=== PATIENT | female | born 1990 | race Caucasian/White ===

== ENCOUNTER 2025-02-13 08:24 | Emergency (ER) | payer BC, MEDICAID ==
[~2025-02-13] VITALS: Ht 165.1 cm; Wt 67.6 kg
[~2025-02-13 08:24] MED LIST: ESOM40CA PO; FAMO-1 PO; IBUP-1984 PO; MACROBID PO; NO HOME MEDS; ONDA4TAB59 PO; ONDA4TAB6 PO; ONDA8TAB9 PO; POTA-206 PO; POTA10TA15 PO
[2025-02-13 08:26] VITALS: TEMP 98.2
[2025-02-13] MEDS ORDERED: CLOT30CR19 TOP (08:36)
[2025-02-13] MEDS ORDERED: AZIT250T83 PO (08:36)
--- NOTE | 2025-02-13 08:39 | Physician Documentation ---
History of Present Illness ~ Chief Complaint: Rash Stated Complaint: RASH Time Seen by MD: 08:31 Primary Medical Doctor: None HPI This is a very pleasant 34-year-old female who presented for evaluation of rash on her right upper extremity/forearm that has been present for the last three days. She states that there has been a raised circular rash. She developed a center rash earlier today. No obvious trigger provocation. [place] do have dogs, [place] It isn't painful. It isn't bleeding or discharge. Denies any other concerns. No concern for tobacco, alcohol or illicit substances use Medication Reconciliation Allergies: Coded Allergies: No Known Allergies (Unverified , 02/13/25) Scheduled Esomeprazole Mag Trihydrate* (Nexium*), 40 MG PO DAILY Famotidine* (Pepcid*), 20 MG PO DAILY Ibuprofen* (Motrin*), 1 TAB PO Q8H Nitrofurantoin/Nitrofuran Mac* (Macrobid*), 100 MG PO BID Ondansetron Hcl (Ondansetron Hcl), 4 MG PO Q8H PRN N/V Ondansetron Hcl (Zofran), 1 TAB PO Q8H Potassium Chloride (Potassium Chloride), 1 TAB PO BID Potassium Chloride (K-Dur), 1 TAB PO DAILY Scheduled PRN Ondansetron (Zofran Odt), 8 MG PO QID PRN Miscellaneous Medications Home Med List (No Home Medications), (Reported) Past Medical History Past Medical History: No Pertinent History Past Surgical History: no surgical history Alcohol Use: None Drug Use: none Lives with: Family Lives In: Home Occupation: student Review of Systems ROS 10 point review of systems was performed and unless noted above in HPI is nega tive for acute process/complaint. Physical Exam Vital Signs: Temperature: 98.2, Source: Temporal, Heart Rate: 67, Respiratory Rate: 16, BP: 154/97, Pulse Oximetry: 98, Weight: 67.600 Physical Exam Physical examination: GENERAL: Awake, alert, oriented, GCS 15, no apparent distress, non-toxic appearing, answers questions, follows commands appropriately. HEENT: Atraumatic, normocephalic, pupils equal, extraocular muscles intact Active gross movements, sclerae anicteric, mucus membranes moist, no stridor. NECK: Midline, no JVD CARDIOVASCULAR: Good skin perfusion without evidence of pallor, mottling. PULMONARY: Nonlabored, symmetric chest rise, no audible wheezing, no accessory muscle use, no respiratory distress, speaking in full sentences. GASTROINTESTINAL: Not distended. NEUROLOGIC: Lucid with normal mental status. Normal facial symmetry. Moves all extremities symmetrically and with purpose. No truncal ataxia. Speech is fluid without evidence of dysarthria or aphasia, no focal deficits appreciated. EXTREMITIES: Acute deformities Skin: warm, dry PSYCHIATRIC: Normal affect, normal insight, normal concentration. Focused exam: [] On the dorsal surface of the right forearm there is a raised ring approximately 2 cm in diameter with a center erythema concerning for trigger fluid rash versus ringworm. No bleeding or discharge. No calor. Progress Results/Orders Results/Orders Vital Signs 02/13/25 08:26 Temp 98.2 Pulse 67 Resp 16 B/P (MAP) 154/97 Pulse Ox 98 Medical Decision Making Findings Facility Status: ED Holds, RME process The plan was discussed with the patient, who demonstrates clear understanding of the plan and is in agreement with the plan unless otherwise noted in the chart. All questions have been answered, all concerns were addressed unless otherwise documented. I was available throughout their ED stay for frequent reassessment and questions. Differential Diagnoses (considered and possible or likely): [Most likely represents ringworm, less likely Lyme disease, no tick exposure, less likely cellulitis, erythema multiforme had also been considered but no new drugs.] ??Differential Diagnoses (considered and unlikely, not requiring evaluation currently): [Clinically not consistent with Morro Bai/ENOCH] [facility] Data Please see [facility] for the following: Independent Historians and external Records Review. Historian: [Patient] Independent Historians: ?[None] Medication Management: [Reviewed medication list] Social History and determinants: [Reviewed] Please see the body of the note for the following: Any independent interpretations of ECG, imaging studies. All vitals signs/haemodynamics, ordered tests were independently reviewed and interpreted by myself. Nursing triage complaint and vitals reviewed, additional nursing notes were reviewed as available and I agree unless otherwise noted or documented in contradiction in the chart Vital Signs: Independently reviewed Labs: Independently interpreted Imaging: Independently interpreted Old Medical Records: Independently reviewed, see [facility] for relevant summary and information Additionally notably showing: [Hemodynamically stable] Tests considered but not ordered include: [Hematologic workup and imaging has been considered but does not appear to be necessary given clinical nature of diagnosis] Social Determinants of Health Impact: Patient was evaluated in [facility], or [facility] [place] to healthcare due to below par ratio of patient to medical providers. [] Comorbid Conditions Impacting Present Evaluation and Care/Treatment: [None] Management Discussions with other Healthcare Providers: [None] Treatment and Disposition Medication Management (Given or considered): []. See EMR for details Consideration for Hospitalization/Escalation/Deescalation of Care: Admission for observation has been considered, [however the patient is able to tolerate p.o., their symptoms are controlled, they are able to rely on oral medications, and their chief complaint/diagnosis can be managed on outpatient basis.] ?ED Course:?[No clinical deterioration] ?Shared decision making:?[Patient is hemodynamically stable for discharge home with follow with their primary care provider. [ ] Specific and cautious return precautions provided and discussed with full understanding. Any incidental findings were also discussed and follow up recommendations given. [] All qu estions answered. Patient/family were able to verbalize back return precautions. Patient/family agree to plan. Copies of imaging and laboratory studies were provided.] Code status:?FULL Please see the full Electronic Medical Record for full details of nursing documentation, medications list, other records of complete past medical history and conditions, vital signs, laboratory studies, and any radiologic study interpretations by radiologists. Portions of this note were completed using [facility] dictation software and as a result there may exist minor errors in spelling. I have reviewed elements of past family and social history and agree as included in note. Departure Disposition: 01 HOME / SELF CARE / HOMELESS Impression: Primary Impression: Ringworm Additional Impression: Target rash Condition: Stable Discharge Instructions: Body Ringworm Referrals: NO PRIMARY CARE PROVIDER (PCP) Prescriptions Azithromycin (Azithromycin) 250 Mg Tablet 1 TAB PO UD for 5 Days, #6 TAB 2 the first day followed by 1 for days 2-5 Prov: BYRON CLANCY DO 02/13/25 Clotrimazole (Clotrimazole) 1 % Cream..g. 1 APPLIC TOP Q12H for 14 Days, #30 GM 0 Refills apply to affected area(s) Prov: BYRON CLANCY DO 02/13/25 Education Educated: Patient Educated regarding: diagnosis, treatment, prognosis, need for follow up Signature Scribe Signature: No scribe Attestation: This note accurately reflects clinical decisions, work performed by myself, DO ASTON Renteria NICHOLAS M DO Feb 13, 2025 08:39
[2025-02-13 09:02] VITALS: BP 154/97; PULSE 67; RESP 16; O2SAT 98
== END 2025-02-13 09:21 | disposition home or self-care (01) ==
LOC: ER 08:25
DX: B35.9 Dermatophytosis, unspecified (principal); Z79.899 Other long term (current) drug therapy
CPT/HCPCS: 99283